=== PATIENT | male | born 1985 | race Caucasian/White ===

== ENCOUNTER 2022-03-17 17:15 | Emergency (ER) | payer OTHER ==
[~2022-03-17] VITALS: Ht 180.3 cm; Wt 72.6 kg
[2022-03-17] MEDS ORDERED: LEVO50TA8 PO (17:53)
--- NOTE | 2022-03-17 18:05 | NUR ---
Pt wants to check something in his car.
--- NOTE | 2022-03-17 18:30 | NUR ---
PT LENO . DR GUTIÉRREZ NOTYFIED.
== END 2022-03-17 18:31 | disposition left against medical advice (07) ==
LOC: ER 17:20
DX: Z53.21 Procedure and treatment not carried out due to patient leaving prior to being seen by health care provider (principal)